=== PATIENT | male | born 1960 | race African-American/Black ===

== ENCOUNTER → 2020-06-07 | Outpatient (CLI) | payer BC, OTHER ==
[~2020-06-07] MED LIST: AMLODIPINE BESY10 MG PO; ASPIRIN EC325 M1 PO; ATORVASTATIN CA40 MG PO; GLUCOPHAGE500 MG PO; HYDROCHLOROTHIA25 M1 PO; LOPRESSOR 50 MG50 M1 PO; MULTIVITAMINS; PLAVIX 75 MG TA75 MG PO; PROTONIX40 M2 PO; SERTRALINE HCL100 MG PO; TAMSULOSIN HCL0.4 MG PO
== END ==
LOC: SJCVCIMAG 07:29
PROVIDERS: ATTEND Internal Medicine
DX: I25.10 Atherosclerotic heart disease of native coronary artery without angina pectoris (principal); I49.3 Ventricular premature depolarization; I25.5 Ischemic cardiomyopathy; R53.83 Other fatigue; E78.5 Hyperlipidemia, unspecified; I10 Essential (primary) hypertension; E11.9 Type 2 diabetes mellitus without complications; Z98.61 Coronary angioplasty status; Z88.8 Allergy status to other drugs, medicaments and biological substances; Z79.899 Other long term (current) drug therapy; Z87.891 Personal history of nicotine dependence